=== PATIENT | male | born 2000 | race African-American/Black ===

== ENCOUNTER 2019-02-28 13:37 | Emergency (ER) | payer SELFPAY ==
[~2019-02-28] VITALS: Ht 180.3 cm; Wt 56.8 kg
[2019-02-28] MEDS ORDERED: AZITHROMYCIN 500 MG TABLET PO ONE (15:00)
[2019-02-28] MEDS ORDERED: CEFTRIAXONE SODIUM 250 MG/VIAL IM ONE (15:00)
[2019-02-28] MEDS ORDERED: IBUPROFEN 600MG TABLET PO ONE (15:00)
[2019-02-28] MEDS ORDERED: LIDOCAINE HCL/PF 1% 10 MG/ML 5ML VIAL IJ ONE (15:15)
[2019-02-28] MEDS: AZITHROMYCIN 500 MG TABLET PO NR ×2 (15:33→15:51)
[2019-02-28 15:54] LABS: CLARITY URINE CLEAR (CLEAR); COLOR URINE YELLOW (YELLOW); KETONES URINE NEGATIVE (NEGATIVE); LEUKOCYTE ESTERASE URINE NEGATIVE (NEGATIVE); NITRITE URINE NEGATIVE (NEGATIVE); OCCULT BLOOD URINE NEGATIVE (NEGATIVE); PROTEIN URINE NEGATIVE (NEGATIVE); SPECIFIC GRAVITY URINE 1.016 (1.005-1.030)
[2019-02-28 18:15] VITALS: BP 125/72
== END 2019-02-28 18:54 | disposition left against medical advice (07) ==
LOC: ER 13:45
DX: N48.1 Balanitis (principal); Z59.0 Homelessness; R30.0 Dysuria; N47.1 Phimosis; F12.10 Cannabis abuse, uncomplicated
CPT/HCPCS: 81003; 96372; 99283; J0696; J3490